=== PATIENT | female | born 1950 | race Two or more races ===

== ENCOUNTER 2016-12-21 10:44 | Emergency (ER) | payer OTHER ==
[~2016-12-21] VITALS: Ht 149.9 cm; Wt 65.0 kg
[~2016-12-21 10:44] MED LIST: CYCL-319 PO; HYDR-3498 PO; IBUP-1542 PO
[2016-12-21 10:48] VITALS: Ht 149.9 cm; Wt 65.0 kg
[2016-12-21] MEDS ORDERED: ASPIRIN 325 MG TAB PO STA (11:11)
[2016-12-21] MEDS ORDERED: SOD CHLORIDE 0.9% 1,000 ML IV STA (11:30)
[2016-12-21 11:52] LABS: ADD SCAN DIFF NO
[2016-12-21 11:57] LABS: BASOPHIL # 0.1 10^3/ul (0.0-0.1); BASOPHILS % 0.9 % (0.0-2.0); EOSINOPHILS # 0.1 10^3/ul (0.0-0.5); EOSINOPHILS % 2.5 % (0.0-7.0); HEMATOCRIT 39.2 % (37.0-47.0); HEMOGLOBIN 13.3 g/dl (12.0-16.0); LYMPHOCYTES # 1.5 10^3/ul (0.8-2.9); LYMPHOCYTES % 27.7 % (15.0-51.0); MEAN CORPUSCULAR HEMOGLOBIN 30.8 pg (29.0-33.0); MEAN CORPUSCULAR HGB CONC 33.9 g/dl (32.0-37.0); MEAN CORPUSCULAR VOLUME 90.7 fl (82.0-101.0); MEAN PLATELET VOLUME 9.5 fl (7.4-10.4); MONOCYTE # 0.4 10^3/ul (0.3-0.9); MONOCYTES % 7.4 % (0.0-11.0); NEUTROPHIL # 3.4 10^3/ul (1.6-7.5); NEUTROPHILS % 60.8 % (39.0-77.0); PLATELET COUNT 183 10^3/UL (140-415); RED BLOOD COUNT 4.32 10^6/ul (4.20-5.40); RED CELL DISTRIBUTION WIDTH 12.3 % (11.5-14.5); WHITE BLOOD COUNT 5.6 10^3/ul (4.8-10.8)
[2016-12-21 12:08] LABS: INR 1.05; PROTIME 13.7 Sec (12.2-14.2); PT RATIO 1.1
--- NOTE | 2016-12-21 12:12 | ERD ---
ER Documentation Chief Complaint Date/Time DATE: 12/21/16 TIME: 12:09 Chief Complaint 12/17 HPI This is a very pleasant 66-year-old Monegasque-speaking female with a known history of [id number] diabetes and hypertension. The patient also has a known history of anxiety disorder and takes lorazepam on an as needed basis. Her daughter who was the rehabilitation services coordinator indicated that at 3 AM this morning , 8 hours prior to arrival, the patient awoke experiencing palpitations, anxiousness, and a sharp chest pain in both the right and left chest wall. She also indicated that she was experiencing some back pain located between her shoulder blades. She did not experience any associated symptoms of nausea vomiting or diaphoresis. She indicates she has had multiple similar symptoms in the past when she has had a panic attack. Her daughter immediately came to the house and at 9 AM, 1 hour prior to arrival gave the patient 1 mg of lorazepam. She stated her symptoms are completely resolved. However the daughter was concerned and wanted her to be further evaluated. The patient does not smoke tobacco. She has no family history of coronary artery disease. She denies any shortness of breath at rest or exertion. She has no calf tenderness or swelling of her lower extremities. She stated she had no chest pressure and again it was a sharp-like chest pain with no fever shaking or chills. ROS All systems reviewed and are negative except as per history of present illness. Medications Home Meds Reported Medications Omeprazole* (Omeprazole*) 20 Mg Capsule.dr, 20 MG PO DAILY, #30 CAP 12/21/16 Gabapentin* (Gabapentin*) 300 Mg Capsule, 300 MG PO BID, #60 CAP 12/21/16 Glimepiride* (Amaryl*) 2 Mg Tablet, 2 MG PO WITH BREAKFAST DINNE, TAB 12/21/16 Duloxetine Hcl* (Cymbalta*) 60 Mg Capsule.dr, 60 MG PO DAILY, CAP 12/21/16 Zolpidem Tartrate* (Zolpidem Tartrate*) 5 Mg Tablet, 5 MG PO QHS Y for INSOMNIA , #30 TAB 12/21/16 Clonazepam* (Clonazepam*) 0.5 Mg Tablet, 0.5 MG PO DAILY, TAB 12/21/16 Quetiapine Fumarate* (Seroquel*) 100 Mg Tablet, 100 MG PO DAILY, #30 TAB 12/21/16 Discontinued Scripts Cyclobenzaprine Hcl* (Cyclobenzaprine Hcl*) 10 Mg Tablet, 10 MG PO BID, #14 TAB Prov:KVNG GREGORIOAbrahan Gabriel PA-C 12/31/15 Hydrocodone Bit-Acetaminophen* (Ogden*) 5-325 Mg Tab, 1 TAB PO Q6 Y for PAIN, # 10 TAB Prov:DARLINEAMBROSE Gabriel PA-C 12/31/15 Ibuprofen* (Motrin*) 600 Mg Tab, 600 MG PO Q6, #30 TAB Prov:DARLINEAMBROSE Gabriel PA-C 12/31/15 Allergies Allergies: Coded Allergies: Penicillins (Verified Allergy, Mild, 12/21/16) iodine (Verified Allergy, Mild, 12/21/16) PMhx/Soc History of Surgery: Yes (HYSTERECTOMY) Anesthesia Reaction: No Hx Neurological Disorder: No Hx Respiratory Disorders: No Hx Cardiac Disorders: No Hx Psychiatric Problems: No Hx Miscellaneous Medical Probl: Yes (DM ) Hx Alcohol Use: No Hx Substance Use: No Hx Tobacco Use: No Smoking Status: Never smoker Physical Exam Vitals Vital Signs Date Time Temp Pulse Resp B/P Pulse Ox O2 Delivery O2 Flow Rate FiO2 12/21/16 10:48 97.9 100 18 140/74 98 Physical Exam Constitutional:Well-developed. Well-nourished. HEENT:Normocephalic. Atraumatic.Pupils were equal round reactive to light. Moist mucous membranes.No tonsillar exudates. Neck: No nuchal rigidity. No lymphadenopathy. No posterior cervical spine tenderness or step-offs. Respiratory: Not using accessory muscles of respiration.Lungs were clear to auscultation bilaterally. No rhonchi. No rales. No wheezing. Cardiovascular: Regular rate regular rhythm.No murmurs. No rubs were appreciated.S1, S2 normal. Distal pulses are palpable 2+ bilaterally. Reproducible bilateral chest wall tenderness GI: Abdomen was soft. Nontender. Non Distended. No pulsatile abdominal masses or bruits. No rebound. No guarding. Bowel sounds were present and normal. Muscle skeletal: Full range of motion of both the upper and lower extremities bilaterally.Normal muscle tone.No assymetrical calf tenderness or swelling. Skin: No petechia, no purpura. No lesions on the palms or the soles of the feet. No maculopapular rash. NEURO: Patient was alert, awake, orientated x3.No facial droop. Gait observed and normal with no ataxia.Speech had regular rate and rhythm. No focal neurological deficits. Result Diagram: 12/21/16 1140 12/21/16 1140 Results 24 hrs Laboratory Tests Test 12/21/16 11:40 White Blood Count 5.610^3/ul Red Blood Count 4.3210^6/ul Hemoglobin 13.3g/dl Hematocrit 39.2% Mean Corpuscular Volume 90.7fl Mean Corpuscular Hemoglobin 30.8pg Mean Corpuscular Hemoglobin Concent 33.9g/dl Red Cell Distribution Width 12.3% Platelet Count 49757^3/UL Mean Platelet Volume 9.5fl Neutrophils % 60.8% Lymphocytes % 27.7% Monocytes % 7.4% Eosinophils % 2.5% Basophils % 0.9% Nucleated Red Blood Cells % 0.0/100WBC Neutrophils # 3.410^3/ul Lymphocytes # 1.510^3/ul Monocytes # 0.410^3/ul Eosinophils # 0.110^3/ul Basophils # 0.110^3/ul Nucleated Red Blood Cells # 0.010^3/ul Prothrombin Time 13.7Sec Prothrombin Time Ratio 1.1 INR International Normalized Ratio 1.05 Activated Partial Thromboplast Time 25.0Sec Sodium Level 137mmol/L Potassium Level 4.0mmol/L Chloride Level 102mmol/L Carbon Dioxide Level 27mmol/L Anion Gap 12 Blood Urea Nitrogen 12mg/dl Creatinine 0.63mg/dl Glucose Level 238mg/dl Calcium Level 9.1mg/dl Total Bilirubin 0.2mg/dl Direct Bilirubin 0.00mg/dl Indirect Bilirubin 0.2mg/dl Aspartate Amino Transf (AST/SGOT) 30IU/L Alanine Aminotransferase (ALT/SGPT) 48IU/L Alkaline Phosphatase 103IU/L Creatine Kinase 34IU/L Creatine Kinase Index 1.2 Creatinine Kinase MB (Mass) 0.40ng/ml Troponin I < 0.012ng/ml B-Type Natriuretic Peptide 58PG/ML Total Protein 7.2g/dl Albumin 4.6g/dl Globulin 2.60g/dl Albumin/Globulin Ratio 1.76 Current Medications Medications (Trade) Dose Ordered Sig/Annette Route PRN Reason Start Time Stop Time Status Last Admin Dose Admin Aspirin 325 mg 325 mg ONCE STAT PO 12/21/16 11:11 12/21/16 11:13 DC 12/21/16 11:11 Sodium Chloride 1,000 ml @ 1,000 mls/hr Q1H STAT IV 12/21/16 11:30 12/21/16 12:29 DC 12/21/16 11:30 Iohexol 100 ml @ ud STK-MED ONCE .ROUTE 12/21/16 12:34 12/21/16 12:35 DC Sodium Chloride (NS) 100 ml @ ud STK-MED ONCE .ROUTE 12/21/16 12:34 12/21/16 12:35 DC Procedures/MDM The patient presented to the emergency department complaining of chest pain. My clinical evaluation and workup was to distinguish minor causes of chest pain from acute life threatening cardiopulmonary causes such as myocardial infarction , pulmonary embolism, aortic dissection, esophageal rupture, cardiac tamponade, The patient was placed on a hospital monitor, continuous pulse oximetry and IV access established by nursing staff. Patient received a liter bolus of 0.9 normal saline. The patient was given 325 mg of aspirin p.o. 12 Lead EKG tracing ordered and reviewed by myself showed: Normal sinus rhythm of 93 bpm and no arrhythmia. [place] interval normal. QRS duration normal. No ST segment elevation No ST segment depression. No changes consistent with acute ischemia. As obtained a CT scan of the patient's chest without contrast as the patient has an allergy to iodine. There is no signs of an aneurysm. The patient did have a fluid density that was in the anterior mediastinum and was poorly evaluated given that there was no IV contrast. I informed the patient and her daughter of this finding and recommended an outpatient nonemergent MRI of the chest. The patient's blood glucose was elevated 238 without evidence of ketosis. She was given a liter bolus of 0.9 normal saline. She does have a history of non- insulin-dependent diabetes The patients chest pain was reproduced by palpation and horizontal flexion of the arms. It was my clinical impression that the pain was a result of inflammation of the skin and subcutaneous structures of the chest wall versus myocardial ischemia. I felt the patient had low-risk chest pain and could therefore be safely discharged with close follow-up. I did offer the patient admission for observation however she was very adamant that she did not want to stay in the hospital this would exacerbate her anxiety. I did also feel the patient had a component of a panic attack that could have exacerbated her symptoms. Her daughter was very reliable and again stated they did not want to stay in the hospital for any further evaluation with follow-up on an outpatient basis. The patient was discharged home in fair condition. They were instructed to return to the emergency department at any time if there was any worsening of their condition. The patient stated they would follow up with their PCP in the next 24-48 hours to initiate a suitable medication regimen under the care of their PCP as well as to allow their PCP to monitor any drug reactions. The patient was discharged home with prescriptions after they gave informed consent to the new medication. They were also fully informed by myself on the adverse effects and adverse drug interactions in order to provide adequate safeguards to prevent possible adverse reactions to medications. Departure Diagnosis: Primary Impression: Costochondral pain Additional Impressions: Panic attack Hyperglycemia without ketosis Condition: ELIEZER Richardson Dec 21, 2016 12:12
[2016-12-21 12:17] LABS: ALANINE AMINOTRANSFERASE 48 IU/L (13-69); ALBUMIN 4.6 g/dl (3.3-4.9); ALBUMIN/GLOBULIN RATIO 1.76; ALKALINE PHOSPHATASE 103 IU/L (42-121); ANION GAP 12 (8-16); ASPARTATE AMINO TRANSFERASE 30 IU/L (15-46); BILIRUBIN,INDIRECT 0.2 mg/dl (0-1.1); BILIRUBIN,TOTAL 0.2 mg/dl (0.2-1.3); BLOOD UREA NITROGEN 12 mg/dl (7-20); CALCIUM 9.1 mg/dl (8.4-10.2); CARBON DIOXIDE 27 mmol/L (21-31); CHLORIDE 102 mmol/L (97-110); CREATINE KINASE 34 IU/L (23-200); CREATININE 0.63 mg/dl (0.44-1.00); GLUCOSE 238 mg/dl (70-220); SODIUM 137 mmol/L (135-144); TOTAL PROTEIN 7.2 g/dl (6.1-8.1)
[2016-12-21 12:29] LABS: B-TYPE NATRIURETIC PEPTIDE 58 PG/ML (0-125)
[2016-12-21 12:32] LABS: TROPONIN-I < 0.012 ng/ml (0.00-0.12)
[2016-12-21] MEDS ORDERED: SOD CHLORIDE 0.9% 100 ML ONE (12:34)
[2016-12-21] MEDS ORDERED: IOHEXOL 100 ML ONE (12:34)
[2016-12-21] MEDS ORDERED: QUET100T PO (12:58)
[2016-12-21] MEDS ORDERED: ZOLP5TAB7 PO (12:59)
[2016-12-21] MEDS ORDERED: CLON0.5T4 PO (12:59)
[2016-12-21] MEDS ORDERED: DULO60CA6 PO (12:59)
[2016-12-21] MEDS ORDERED: GLIM2TAB47 PO (13:01)
[2016-12-21] MEDS ORDERED: GABA300C16 PO (13:03)
[2016-12-21] MEDS ORDERED: OMEP20CA16 PO (13:04)
--- NOTE | 2016-12-21 13:14 | RADRPT ---
PROCEDURE: Chest Radiograph. CLINICAL INDICATION: Chest pain TECHNIQUE: Single frontal chest radiograph. COMPARISON: None available FINDINGS: The cardiomediastinal silhouette is within normal limits. No infiltrate or effusion is seen. Th e bones are intact. IMPRESSION: 1. Unremarkable chest radiograph. RPTAT: KK .Jovon Renee MD, MD Date Time Electronically viewed and signed by .Jovon Renee MD, on 12/21/2016 13:13 .B/
--- NOTE | 2016-12-21 13:27 | RADRPT ---
PROCEDURE: CT Chest without contrast. CLINICAL INDICATION: Chest pain TECHNIQUE: CT scan of the chest without contrast was performed on a multi-slice CT scanner. The p atient was scanned without intravenous contrast. One or more of the following does reduction techni ques were used: Automated exposure control; adjustment of the mA and/or kV according to patient siz e; use of the aorta of reconstruction technique. Coronal and sagittal reformatted images were obtai paulette from the axial source images. The total exam CTDI equals 13.4 mGy and the total exam DLP equals 435.15 mGy-cm. COMPARISON: Chest radiograph 12/21/2016 FINDINGS: There are no enlarged mediastinal or axillary lymph nodes identified. There is a 1.0 x 1.9 cm fluid density structure in the anterior mediastinum. The lalit are not well evaluate given lack of intraven ous contrast. The heart is normal in size, and there is no pericardial effusion. There is apparent coronary artery anomaly which is poorly evaluated in the absence of contrast enema non gated study, however the left main appears to arise from the right coronary leaflet and travels anterior to the p ulmonary artery. There is no evidence of intra-arterial course. The circumflex arises from this an omalous left main. There are minimal dependent changes in the posterior lower lobes. The lungs are otherwise clear. No nodules or masses are identified. There is no pulmonary infiltrate. The central tracheobronchi al tree is clear. No pleural effusion is seen. The partially imaged subdiaphragmatic contents are within normal limits. There mild degenerate change of the spine. IMPRESSION: 1. No CT evidence of acute thoracic pathology. 2. 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 This is a benign coronary artery anomal y. 3. 1.9 cm fluid density lesion in the anterior mediastinum is poorly evaluated in the absence of in travenous contrast. This likely represents a pericardial cyst or other benign entity. Recommend fu rther evaluation with non emergent MRI of the chest. RPTAT: KK .Jovon Renee MD, MD Date Time Electronically viewed and signed by .Jovon Renee MD, on 12/21/2016 13:27 .B/
[2016-12-21 14:35] VITALS: BP 135/70; PULSE 81; RESP 18
== END 2016-12-21 14:40 | disposition home or self-care (01) ==
LOC: E/R 10:44
DX: R07.1 Chest pain on breathing (principal); F41.0 Panic disorder [episodic paroxysmal anxiety]; E11.65 Type 2 diabetes mellitus with hyperglycemia; I10 Essential (primary) hypertension; R06.02 Shortness of breath
CPT/HCPCS: 36415; 71010; 71250; 80053; 82550; 82553; 83880; 84484; 85025; 85610; 85730; 93005; J7030; Q9967; Z7502; Z7610

== ENCOUNTER 2018-06-14 11:17 | Emergency (ER) | payer MEDICARE, OTHER ==
[~2018-06-14] VITALS: Ht 149.9 cm; Wt 66.6 kg
[~2018-06-14 11:17] MED LIST changes: +CLON0.5T14 PO; -CYCL-319 PO; +DULO60CA6 PO; +GABA300C16 PO; +GLIM2TAB47 PO; -HYDR-3498 PO; -IBUP-1542 PO; +OMEP20CA16 PO; +QUET100T PO; +ZOLP5TAB7 PO
[2018-06-14 11:39] VITALS: Ht 149.9 cm; Wt 66.6 kg
[2018-06-14] MEDS ORDERED: SITA1TAB5 PO (13:48)
--- NOTE | 2018-06-14 14:19 | ERD ---
ER Documentation Chief Complaint Chief Complaint cp/palpitations/anxiety starting this morning, sob HPI This is a 67-year-old female with a past history of diabetes, as well as anxiety who presents with chest palpitations, and feeling of shortness of breath that happened this morning lasting a few seconds. The episode feel similar to prior episodes of anxiety. She has no cardiac history, she does have a history of diabetes, denies leg swelling, denies hemoptysis, no history of immobility, no history of coagulopathy. ROS All systems reviewed and are negative except as per history of present illness. Medications Home Meds Reported Medications Sitagliptin Phos/Metformin HCl (Janumet 50-1,000 mg Tablet) 1 Each Tablet, 1 EACH PO BID, TAB 06/14/18 Omeprazole* (Omeprazole*) 20 Mg Capsule.dr, 20 MG PO DAILY, #30 CAP 12/21/16 Gabapentin* (Gabapentin*) 300 Mg Capsule, 300 MG PO BID, #60 CAP 12/21/16 Glimepiride* (Amaryl*) 2 Mg Tablet, 2 MG PO WITH BREAKFAST DINNE, TAB 12/21/16 Duloxetine Hcl* (Cymbalta*) 60 Mg Capsule.dr, 60 MG PO DAILY, CAP 12/21/16 Zolpidem Tartrate* (Zolpidem Tartrate*) 5 Mg Tablet, 5 MG PO QHS PRN for INSOMNIA, #30 TAB 12/21/16 Clonazepam* (Clonazepam*) 0.5 Mg Tablet, 0.5 MG PO DAILY, TAB 12/21/16 Quetiapine Fumarate* (Seroquel*) 100 Mg Tablet, 100 MG PO DAILY, #30 TAB 12/21/16 Allergies Allergies: Coded Allergies: Penicillins (Verified Allergy, Mild, 06/14/18) iodine (Verified Allergy, Mild, 06/14/18) PMhx/Soc History of Surgery: Yes (HYSTERECTOMY) Anesthesia Reaction: No Hx Neurological Disorder: No Hx Respiratory Disorders: No Hx Cardiac Disorders: No Hx Psychiatric Problems: Yes (anxiety) Hx Miscellaneous Medical Probl: Yes (DM ) Hx Alcohol Use: No Hx Substance Use: No Hx Tobacco Use: No Smoking Status: Never smoker Physical Exam Vitals Vital Signs Date Temp Pulse Resp B/P (MAP) Pulse Ox O2 O2 Flow FiO2 Time Delivery Rate 06/14/18 98.7 94 18 143/87 96 11:39 (105) Physical Exam Const: No acute distress Head: Atraumatic Eyes: Normal Conjunctiva ENT: Normal External Ears, Nose and Mouth. Neck: Full range of motion. No meningismus. Resp: Clear to auscultation bilaterally Cardio: Regular rate and rhythm, no murmurs Abd: Soft, non tender, non distended. Normal bowel sounds Skin: No petechiae or rashes Back: No midline or flank tenderness Ext: No cyanosis, or edema Neur: Awake and alert Psych: Normal Mood and Affect Result Diagram: 06/14/18 1248 06/14/18 1248 Results 24 hrs Laboratory Tests Test 06/14/18 12:48 White Blood Count 7.0 10^3/ul Red Blood Count 4.45 10^6/ul Hemoglobin 13.5 g/dl Hematocrit 40.2 % Mean Corpuscular Volume 90.3 fl Mean Corpuscular Hemoglobin 30.3 pg Mean Corpuscular Hemoglobin Concent 33.6 g/dl Red Cell Distribution Width 12.5 % Platelet Count 218 10^3/UL Mean Platelet Volume 9.2 fl Immature Granulocytes % 0.700 % Neutrophils % 54.9 % Lymphocytes % 31.6 % Monocytes % 7.4 % Eosinophils % 4.4 % Basophils % 1.0 % Nucleated Red Blood Cells % 0.0 /100WBC Immature Granulocytes # 0.050 10^3/ul Neutrophils # 3.9 10^3/ul Lymphocytes # 2.2 10^3/ul Monocytes # 0.5 10^3/ul Eosinophils # 0.3 10^3/ul Basophils # 0.1 10^3/ul Nucleated Red Blood Cells # 0.0 10^3/ul Prothrombin Time 12.9 Sec Prothrombin Time Ratio 1.0 INR International Normalized Ratio 0.96 Sodium Level 140 mmol/L Potassium Level 4.0 mmol/L Chloride Level 103 mmol/L Carbon Dioxide Level 27 mmol/L Anion Gap 10 Blood Urea Nitrogen 17 mg/dl Creatinine 0.63 mg/dl Est Glomerular Filtrat Rate mL/min > 60 mL/min Glucose Level 104 mg/dl Calcium Level 9.6 mg/dl Total Bilirubin 0.2 mg/dl Direct Bilirubin 0.00 mg/dl Indirect Bilirubin 0.2 mg/dl Aspartate Amino Transf (AST/SGOT) 27 IU/L Alanine Aminotransferase (ALT/SGPT) 27 IU/L Alkaline Phosphatase 86 IU/L Troponin I < 0.012 ng/ml B-Type Natriuretic Peptide 41 PG/ML Total Protein 8.0 g/dl Albumin 4.6 g/dl Globulin 3.40 g/dl Albumin/Globulin Ratio 1.35 Procedures/MDM This is a very pleasant 67-year-old female presents for evaluation of chest palpitation chest pain, she has a history of anxiety, and this episode was similar, occurred about 6 AM, however given her age and history of diabetes, she was evaluated for acute coronary syndrome. Her labs including troponin and EKG were all unremarkable. Patient felt much better, and I discussed the next step of further cardiac evaluation with a possible stress test, patient felt com fortable performing this as soon as possible as an outpatient, her heart score puts her at low risk, at discharge she was in no acute distress. EKG: Rate/Rhythm: Normal Sinus Rhythm QRS, ST, T-waves: No changes consistent w/ acute ischemia Impression: No evidence of ischemia or arrhythmia Departure Diagnosis: Primary Impression: Chest pain Chest pain type: unspecified Qualified Codes: R07.9 - Chest pain, unspecified Condition: Stable Patient Instructions: Chest Pain, Uncertain Cause Additional Instructions: Call your primary care doctor TOMORROW for an appointment during the next 2-3 days.See the doctor sooner or return here if your condition worsens before your appointment time. DIVYA CIHN MD Jun 14, 2018 14:19
[2018-06-14 14:20] VITALS: BP 125/75; PULSE 80; RESP 16
== END 2018-06-14 14:20 | disposition home or self-care (01) ==
LOC: E/R 11:17
DX: R07.9 Chest pain, unspecified (principal); E11.9 Type 2 diabetes mellitus without complications; Z79.84 Long term (current) use of oral hypoglycemic drugs
CPT/HCPCS: 36415; 71045; 80053; 83880; 84484; 85025; 85610; 93005